=== PATIENT | female | born 1995 | race Caucasian/White ===

== ENCOUNTER 2017-06-20 15:02 | Outpatient (CLI) | payer BC, OTHER ==
[~2017-06-20] VITALS: Ht 160 cm; Wt 66.2 kg
[~2017-06-20 15:02] MED LIST: ACHYD1T PO; IBP800T PO; PREN1TAB71 PO
[2017-06-20] MEDS ORDERED: INFLUENZA TRIvalent 2017-2018 0.5 ML/45 MCG SYR IM ONE (16:00)
[2017-06-20] MEDS ORDERED: D5 LR IV SOLUTION 1,000 ML IV ONE (16:12)
[2017-06-20] MEDS: D5 LR IV SOLUTION 1,000 ML IV SCH (16:20)
[2017-06-20 17:08] LABS: BASOPHILS % (AUTO) 0 % (0-10); EOSINOPHILS % (AUTO) 0 % (0-10); LYMPHOCYTES # (AUTO) 1.8 X 10^3 (1.0-4.0); LYMPHOCYTES % (AUTO) 18 % (12-44); MEAN CORPUSCULAR HEMOGLOBIN 29 PG (25-34); MEAN CORPUSCULAR HGB CONC 33 G/DL (32-36); MEAN CORPUSCULAR VOLUME 87 FL (80-99); MEAN PLATELET VOLUME 10.5 FL (7.4-10.4); MONOCYTES # (AUTO) 0.7 X 10^3 (0.0-1.0); MONOCYTES % (AUTO) 7 % (0-12); NEUTROPHILS # (AUTO) 7.6 X 10^3 (1.8-7.8); NEUTROPHILS % (AUTO) 75 % (42-75); PLATELET COUNT 272 10^3/uL (130-400); RED BLOOD COUNT 3.86 10^6/uL (4.35-5.85); RED CELL DISTRIBUTION WIDTH 12.4 % (10.0-14.5); WHITE BLOOD COUNT 10.2 10^3/uL (4.3-11.0)
[2017-06-20 17:15] LABS: BILIRUBIN,URINE NEGATIVE (NEGATIVE); KETONES,URINE NEGATIVE (NEGATIVE); LEUKOCYTE ESTERASE ,URINE NEGATIVE (NEGATIVE); NITRITE,URINE NEGATIVE (NEGATIVE); PH,URINE 6.5 (5-9); PROTEIN,URINE 1+ (NEGATIVE); UROBILINOGEN,URINE 1 MG/DL (NORMAL)
[2017-06-20 17:24] LABS: WBC,URINE RARE /HPF
[2017-06-20] MEDS ORDERED: BETAMETHASONE ACE/NA PHOS 6 MG/ML (CELESTONE SOLUSPAN) IM SCH (17:56)
[2017-06-20] MEDS ORDERED: BETAMETHASONE ACE/NA PHOS 6 MG/ML (CELESTONE SOLUSPAN) ONE (17:56)
[2017-06-20] MEDS ORDERED: D5 LR IV SOLUTION 1,000 ML IV SCH (19:00)
[2017-06-20 20:10] VITALS: BP 125/63
[2017-06-20 23:10] VITALS: BP 105/53
[2017-06-21] MEDS: D5 LR IV SOLUTION 1,000 ML IV SCH (00:20)
[2017-06-21 07:09] VITALS: BP 113/57
--- NOTE | 2017-06-21 07:27 | History & Physical ---
History and Physical Date Seen by Provider: Jun 20, 2017 Time Seen by Provider: 18:30 this patient is a 21-year-old white female with a due date of July 28, 2017. She presented with complaint of regular contractions at 34+ weeks gestation. she denied rupture membranes or bleeding. She's had no other problems with this . She has had 1 prior that resulted in a 39 week vaginal delivery. He was found to be paxton every 2 minutes. He was given a single dose of betamethasone but plans to repeat in 24 hours and started on IV fluids for hydration. As she was past 34 weeks decision made against tocolytics. Allergies are none Medications vitamins Past medical history, surgical history, obstetric history, family history, and social history operative record ENT exam is normal Neck supple no lymphadenopathy in the thyromegaly Abdomen gravid soft nontender nondistended extremities show no cyanosis or Homans sign. Pelvic exam per the admitting nurse showed a cervix that was maybe fingertip and long. There was no shredding machine knife changer the period of evaluation. Laboratory Tests Test 06/20/17 16:25 06/20/17 16:30 Range/Units White Blood Count 10.2 4.3-11.0 10^3/uL Red Blood Count 3.86 L 4.35-5.85 10^6/uL Hemoglobin 11.0 L 11.5-16.0 G/DL Hematocrit 34 L 35-52 % Mean Corpuscular Volume 87 80-99 FL Mean Corpuscular Hemoglobin 29 25-34 PG Mean Corpuscular Hemoglobin Concent 33 32-36 G/DL Red Cell Distribution Width 12.4 10.0-14.5 % Platelet Count 272 130-400 10^3/uL Mean Platelet Volume 10.5 H 7.4-10.4 FL Neutrophils (%) (Auto) 75 42-75 % Lymphocytes (%) (Auto) 18 12-44 % Monocytes (%) (Auto) 7 0-12 % Eosinophils (%) (Auto) 0 0-10 % Basophils (%) (Auto) 0 0-10 % Neutrophils # (Auto) 7.6 1.8-7.8 X 10^3 Lymphocytes # (Auto) 1.8 1.0-4.0 X 10^3 Monocytes # (Auto) 0.7 0.0-1.0 X 10^3 Eosinophils # (Auto) 0.0 0.0-0.3 10^3/uL Basophils # (Auto) 0.0 0.0-0.1 10^3/uL Urine Color YELLOW Urine Clarity SLIGHTLY CLOUDY Urine pH 6.5 5-9 Urine Specific [place] 1.020 1.016-1.022 Urine Protein 1+ H NEGATIVE Urine Glucose (UA) NEGATIVE NEGATIVE Urine Ketones NEGATIVE NEGATIVE Urine Nitrite NEGATIVE NEGATIVE Urine Bilirubin NEGATIVE NEGATIVE Urine Urobilinogen 1 NORMAL MG/DL Urine Leukocyte Esterase NEGATIVE NEGATIVE Urine RBC (Auto) 3+ H NEGATIVE Urine RBC 5-10 H /HPF Urine WBC RARE /HPF Urine Crystals NONE /LPF Urine Amorphous Sediment MOD ANAT PHOSPHATE H /LPF Urine Bacteria FEW H /HPF Urine Casts PRESENT /LPF Urine Coarse Granular Casts 10-25 H /LPF Urine Mucus NEGATIVE /LPF Urine Culture Indicated NO Patient is somewhat dehydrated and shows some protein urine likely secondary to the dehydration. Vital Signs Date Time Temp Pulse Resp B/P (MAP) Pulse Ox O2 Delivery O2 Flow Rate FiO2 06/21/17 07:09 98.3 83 16 113/57 (75) 06/20/17 23:10 97.3 95 16 105/53 (70) 06/20/17 20:10 97.3 82 16 125/63 (83) assessment and plan labor at 34+ weeks gestation. Plan is for hydration and observation. If she should progress in labor then plan will be to allow delivery patient has been given a dose of betamethasone in case she should actually labor. If her contractions resolved then we will discharge home with follow-up in clinic Allergies and Home Medications Allergies Coded Allergies: codeine (Unverified Allergy, Unknown, 06/17/13) Home Medications Vit/Fe Fumarate/Fa 1 Each Tablet, 1 EACH PO DAILY, (Reported) YING HOLLAND MD Jun 21, 2017 7:27 am
--- NOTE | 2017-06-21 07:29 | Progress Note-Standard ---
Standard Progress Note Progress Notes/Assess & Plan Date Seen by Provider: Jun 21, 2017 Time Seen by Provider: 07:27 Progress/Assessment & Plan patient is without complaints. Her contractions have resolved. She denies rupture membranes. She's had some spotting likely attributable to her cervical exams. She does feel baby moving. She denies contraction. Laboratory Tests Test 06/20/17 16:25 06/20/17 16:30 Range/Units White Blood Count 10.2 4.3-11.0 10^3/uL Red Blood Count 3.86 L 4.35-5.85 10^6/uL Hemoglobin 11.0 L 11.5-16.0 G/DL Hematocrit 34 L 35-52 % Mean Corpuscular Volume 87 80-99 FL Mean Corpuscular Hemoglobin 29 25-34 PG Mean Corpuscular Hemoglobin Concent 33 32-36 G/DL Red Cell Distribution Width 12.4 10.0-14.5 % Platelet Count 272 130-400 10^3/uL Mean Platelet Volume 10.5 H 7.4-10.4 FL Neutrophils (%) (Auto) 75 42-75 % Lymphocytes (%) (Auto) 18 12-44 % Monocytes (%) (Auto) 7 0-12 % Eosinophils (%) (Auto) 0 0-10 % Basophils (%) (Auto) 0 0-10 % Neutrophils # (Auto) 7.6 1.8-7.8 X 10^3 Lymphocytes # (Auto) 1.8 1.0-4.0 X 10^3 Monocytes # (Auto) 0.7 0.0-1.0 X 10^3 Eosinophils # (Auto) 0.0 0.0-0.3 10^3/uL Basophils # (Auto) 0.0 0.0-0.1 10^3/uL Urine Color YELLOW Urine Clarity SLIGHTLY CLOUDY Urine pH 6.5 5-9 Urine Specific [place] 1.020 1.016-1.022 Urine Protein 1+ H NEGATIVE Urine Glucose (UA) NEGATIVE NEGATIVE Urine Ketones NEGATIVE NEGATIVE Urine Nitrite NEGATIVE NEGATIVE Urine Bilirubin NEGATIVE NEGATIVE Urine Urobilinogen 1 NORMAL MG/DL Urine Leukocyte Esterase NEGATIVE NEGATIVE Urine RBC (Auto) 3+ H NEGATIVE Urine RBC 5-10 H /HPF Urine WBC RARE /HPF Urine Crystals NONE /LPF Urine Amorphous Sediment MOD ANAT PHOSPHATE H /LPF Urine Bacteria FEW H /HPF Urine Casts PRESENT /LPF Urine Coarse Granular Casts 10-25 H /LPF Urine Mucus NEGATIVE /LPF Urine Culture Indicated NO monitoring shows no contractions were initially contractions were every 2- 4-6 minutes. The abdomen is gravid soft nontender nondistended Semicircular clubbing cyanosis. Pelvic exam per the nurse showed no cervical microsoft exchange architect the period of observation. Assessment and plan hospital day number 2 for labor. The contractions have resolved patient will be discharged home with follow-up in clinic. Final Diagnosis labor at 34+ weeks gestation YING HOLLAND MD Jun 21, 2017 7:29 am
== END 2017-06-21 07:30 | disposition home or self-care (01) ==
LOC: WSo 15:02 → LDRP 15:02 → WSo 06-21 07:30
PROVIDERS: ATTEND Obstetrics & Gynecology
DX: O60.03 Preterm labor without delivery, third trimester (principal); Z3A.34 34 weeks gestation of pregnancy
CPT/HCPCS: 36415; 81000; 85025; 96372

== ENCOUNTER 2017-07-10 14:11 | Inpatient (IN) | payer OTHER ==
[~2017-07-10] VITALS: Ht 160 cm; Wt 73.5 kg
[2017-07-10 14:00] VITALS: BP 110/67
[2017-07-10 15:08] LABS: BILIRUBIN,URINE NEGATIVE (NEGATIVE); CLARITY,URINE CLEAR; COLOR,URINE YELLOW; GLUCOSE, URINE (UA) NEGATIVE (NEGATIVE); KETONES,URINE NEGATIVE (NEGATIVE); LEUKOCYTE ESTERASE ,URINE 1+ (NEGATIVE); NITRITE,URINE NEGATIVE (NEGATIVE); PH,URINE 6.5 (5-9); PROTEIN,URINE 2+ (NEGATIVE); UROBILINOGEN,URINE NORMAL (NORMAL)
[2017-07-10] MEDS: D5 LR IV SOLUTION 1,000 ML IV SCH ×3 (15:10→23:00)
[2017-07-10 15:18] LABS: RBC,URINE >100 /HPF
[2017-07-10 15:23] LABS: BASOPHILS % (AUTO) 0 % (0-10); EOSINOPHILS # (AUTO) 0.1 10^3/uL (0.0-0.3); EOSINOPHILS % (AUTO) 1 % (0-10); HEMATOCRIT 34 % (35-52); HEMOGLOBIN 11.2 G/DL (11.5-16.0); LYMPHOCYTES # (AUTO) 1.7 X 10^3 (1.0-4.0); LYMPHOCYTES % (AUTO) 18 % (12-44); MEAN CORPUSCULAR HEMOGLOBIN 28 PG (25-34); MEAN CORPUSCULAR HGB CONC 33 G/DL (32-36); MEAN CORPUSCULAR VOLUME 85 FL (80-99); MEAN PLATELET VOLUME 10.2 FL (7.4-10.4); MONOCYTES # (AUTO) 0.6 X 10^3 (0.0-1.0); MONOCYTES % (AUTO) 7 % (0-12); NEUTROPHILS % (AUTO) 74 % (42-75); PLATELET COUNT 241 10^3/uL (130-400); RED BLOOD COUNT 4.01 10^6/uL (4.35-5.85); WHITE BLOOD COUNT 9.4 10^3/uL (4.3-11.0)
[2017-07-10] MEDS ORDERED: INFLUENZA TRIvalent 2017-2018 0.5 ML/45 MCG SYR IM ONE (16:15)
--- NOTE | 2017-07-10 17:20 | History & Physical ---
History and Physical Date Seen by Provider: Jul 10, 2017 Time Seen by Provider: 17:16 this patient is a 22-year-old white female with a due date of July 28, 2017 putting her just past 37 weeks gestation. She presented with complaint of vaginal discharge and contractions. She was found be paxton every 2-3 minutes with contractions have sort of wax and wane during the period of evaluation. In spite of hydration contractions have continued. It does not appear that she is leaking amniotic fluid as evaluation of that has been negative and she does indicate that contractions sometimes are quite intense but currently they wax and wane spacing out to 6 or 8 minutes apart and then increased to 2-3 minutes apart each lasting 60 seconds are longer. a GBS culture done after 35 weeks gestation is negative. allergies are none Medications are vitamins Medical surgical social histories are per the antepartum record HEENT exam is normal Neck is supple no lymphadenopathy no thyromegaly Abdomen is gravid soft nontender nondistended Extreme show clubbing cyanosis. There is no Homans sign. Pelvic exam per the labor and delivery nurse is 2-1/2 cm dilated thick vertex presentation with no change on serial exams monitor currently showed contractions about every 3-4 minutes. They're lasting 60 seconds patient indicates that they are moderate in intensity. She indicates that pressure in the pelvis waxes and wanes with contractions. Lab work is as follows Laboratory Tests Test 07/10/17 14:55 07/10/17 15:15 Range/Units Urine Color YELLOW Urine Clarity CLEAR Urine pH 6.5 5-9 Urine Specific [place] 1.020 1.016-1.022 Urine Protein 2+ H NEGATIVE Urine Glucose (UA) NEGATIVE NEGATIVE Urine Ketones NEGATIVE NEGATIVE Urine Nitrite NEGATIVE NEGATIVE Urine Bilirubin NEGATIVE NEGATIVE Urine Urobilinogen NORMAL NORMAL MG/DL Urine Leukocyte Esterase 1+ H NEGATIVE Urine RBC (Auto) 5+ H NEGATIVE Urine RBC >100 H /HPF Urine WBC 2-5 /HPF Urine Crystals NONE /LPF Urine Bacteria NONE /HPF Urine Casts NONE /LPF Urine Mucus NEGATIVE /LPF Urine Culture Indicated NO White Blood Count 9.4 4.3-11.0 10^3/uL Red Blood Count 4.01 L 4.35-5.85 10^6/uL Hemoglobin 11.2 L 11.5-16.0 G/DL Hematocrit 34 L 35-52 % Mean Corpuscular Volume 85 80-99 FL Mean Corpuscular Hemoglobin 28 25-34 PG Mean Corpuscular Hemoglobin Concent 33 32-36 G/DL Red Cell Distribution Width 13.0 10.0-14.5 % Platelet Count 241 130-400 10^3/uL Mean Platelet Volume 10.2 7.4-10.4 FL Neutrophils (%) (Auto) 74 42-75 % Lymphocytes (%) (Auto) 18 12-44 % Monocytes (%) (Auto) 7 0-12 % Eosinophils (%) (Auto) 1 0-10 % Basophils (%) (Auto) 0 0-10 % Neutrophils # (Auto) 7.0 1.8-7.8 X 10^3 Lymphocytes # (Auto) 1.7 1.0-4.0 X 10^3 Monocytes # (Auto) 0.6 0.0-1.0 X 10^3 Eosinophils # (Auto) 0.1 0.0-0.3 10^3/uL Basophils # (Auto) 0.0 0.0-0.1 10^3/uL other than some mild dehydration the patient's lab is normal assessment and plan 37 week plus gestation with labor. We will continue to monitor and continue with IV fluids for addressing her dehydration. She has not made cervical change we will allow diet with the expectation that her contractions will lead to progress and she will demonstrate labor and deliver or she will have resolution of her contractions at which point we can discharge her home with follow-up in clinic threatened labor Allergies and Home Medications Allergies Coded Allergies: codeine (Unverified Allergy, Unknown, 06/17/13) Home Medications Vit/Fe Fumarate/Fa 1 Each Tablet, 1 EACH PO DAILY, (Reported) YING HOLLAND MD Jul 10, 2017 5:20 pm
[2017-07-10 18:00] VITALS: BP 121/61
[2017-07-10 20:00] VITALS: BP 114/57
[2017-07-11] VITALS (38 sets, daily range): BP systolic 93–138; BP diastolic 51–78
[2017-07-11] MEDS ORDERED: OXYTOCIN/NORMAL SALINE 500 ML IV ONE (05:31)
[2017-07-11] MEDS ORDERED: D5 LR IV SOLUTION 1,000 ML IV SCH (05:58)
[2017-07-11] MEDS ORDERED: OXYTOCIN/NORMAL SALINE 500 ML IV SCH ×2 (05:58→08:32)
[2017-07-11] MEDS ORDERED: CATHETER FLUSH 10 ML SYR IV SCH (06:00)
[2017-07-11] MEDS ORDERED: SUFENTA 0.6MCG/ML BUPIVA 0.125 100 ML ONE ×2 (08:22→09:09)
--- NOTE | 2017-07-11 08:28 | Progress Note-Standard ---
Standard Progress Note Progress Notes/Assess & Plan Date Seen by Provider: Jul 11, 2017 Time Seen by Provider: 08:25 Progress/Assessment & Plan patient complains of persistent contractions through the night. By this morning her cervix dilated to 3 cm or little bit more. She continued to contract regularly. Intensity of the contractions waxed and waned through the night. Decision was made to proceed with Pitocin augmentation of what has developed into a prolonged latent labor. With stimulation of the Pitocin she progressed now to pass 4 cm. Amniotomy has now been performed releasing clear fluid. Anticipation is for vaginal delivery. Vital Signs Date Time Temp Pulse Resp B/P (MAP) Pulse Ox O2 Delivery O2 Flow Rate FiO2 07/11/17 07:35 75 93/51 (65) Room Air 07/11/17 07:15 96.9 88 18 109/59 (76) Room Air 07/11/17 07:00 97 18 116/68 (84) 07/11/17 06:45 94 18 101/60 (74) 07/11/17 06:30 99 18 115/70 (85) 07/11/17 06:15 98.7 82 18 119/73 (88) 07/10/17 20:00 99.2 98 16 114/57 (76) 07/10/17 18:00 98.3 96 16 121/61 (81) 07/10/17 14:00 98.0 102 16 110/67 (81) I & O 07/11/17 07:00 Intake Total 1000 ml Balance 1000 ml Vital signs are stable. Patient is afebrile. Abdomen is gravid soft nontender nondistended. Extremities show no clubbing cyanosis. There is no Homans sign. Pelvic exam reveals a cervix for similar dilated 58 percent effaced -1 station vertex presentation with a soft mid to slightly anterior cervix. Amniotomy is performed releasing clear fluid. Assessment and plan hospital day 2 with a now prolonged latent labor. initiated Pitocin augmentation to promote progress to delivery. Amniotomy performed. Epidural be allowed desired. We anticipate a vaginal delivery. YING HOLLAND MD Jul 11, 2017 8:28 am
[2017-07-11] MEDS ORDERED: TETANUS,DIPTH,PERTUSS P/F (BOOSTRIX) 0.5 ML VIAL IM ONE (08:45)
[2017-07-11] MEDS ORDERED: ONDANSETRON 4 MG/2 ML (SDV) Z0FRAN IVP PRN (08:45)
[2017-07-11] MEDS ORDERED: MEASLES,MUMPS,RUBELLA 1 EA INJ SC ONE (08:45)
[2017-07-11] MEDS ORDERED: oxyCODONE/APAP 10/325MG (PERCOCET 10) TABLET PO PRN (08:45)
[2017-07-11] MEDS ORDERED: BENZOCAINE/MENTHOL (DERMOPLAST) 56 ML CAN TP PRN (08:45)
[2017-07-11] MEDS ORDERED: fentaNYL INJECTION 100 MCG/2 ML AMP ONE (09:09)
[2017-07-11] MEDS ORDERED: BUPIVACAINE 0.25% 30 ML (SENSORCAINE) VIAL ONE (09:09)
[2017-07-11] MEDS ORDERED: LACTATED RINGERS 1,000 ML IV SCH (10:06)
[2017-07-11] MEDS ORDERED: ONDANSETRON 4 MG/2 ML (SDV) Z0FRAN IV PRN (10:15)
[2017-07-11] MEDS ORDERED: METOCLOPRAMIDE INJ 10 MG/2 ML (REGLAN) IV PRN (10:15)
[2017-07-11] MEDS ORDERED: EPIDURAL (SUFENTA 0.6MCG/ML BUPIVA 0.125%) 100 ML BAG EPI PRN (10:15)
[2017-07-11] MEDS ORDERED: diphenhydrAMINE 50 MG/ML INJ (BENADRYL) IV PRN (10:15)
[2017-07-11] MEDS ORDERED: NALOXONE 0.4 MG/ML 1 ML (NARCAN) VIAL IV PRN ×2 (10:15)
[2017-07-11] MEDS ORDERED: LIDOCAINE/EPI 2% 1:200,00 (XYLOCAINE) 10 ML VIAL ONE ×2 (10:53→11:32)
[2017-07-11] MEDS ORDERED: LIDOCAINE/EPI 2% 1:100,00 (XYLOCAINE) 20 ML VIAL INJ ONE ×2 (11:30)
[2017-07-11] MEDS: KETOROLAC 30 MG/ML VIAL IV SCH ×2 (14:44→20:37)
[2017-07-11] MEDS ORDERED: WITCH HAZEL(TUCKS) 40 EA JAR ONE (14:59)
--- NOTE | 2017-07-11 22:22 | OPERATIVE REPORT ---
DATE OF SERVICE: 07/11/2017 DELIVERY NOTE The patient delivered by term spontaneous vaginal delivery a viable male with Apgars that are pending and weight of 7 pounds 11 ounces. Cord blood pH is pending. time was 06/06/2017. The was bulb suctioned on delivery of the head and again on completion of the delivery. The was delivered from straight OA and required just a mild Riaz to release the shoulders. There was never really significant dystocia. Mom was pushing under the remnants of an epidural and the Riaz just eased the shoulders passage. The patient sustained a second-degree perineal laceration. The umbilical cord was doubly clamped when it was relatively pulseless and the father cut the cord, the baby was passed transiently to mom's abdomen and baby was taken to the warmer for resuscitation. The cord bloods were obtained then the placenta delivered quite promptly spontaneously [place]. It was normal with a 3-vessel cord. The cervix, vagina, rectum and perineum were examined and found intact, except for the first degree laceration that extended a centimeter or 2 up the left vaginal sulcus and involved a compound laceration on the peritoneum. This was all repaired with a single suture of 3-0 Vicryl Rapide in the usual manner to the reapproximation. The patient did have fairly substantial swelling that began immediately after the delivery and continued to progress as the repair was performed. Good reapproximation was achieved and good hemostasis was achieved. The patient tolerated the repair well and was performed under the epidural and augmented with 2% lidocaine with epinephrine using a total of 28 mL. Sponge and needle counts were correct on completion of the repair. Estimated blood loss was around 250 mL. The patient tolerated the delivery and the repair well and remained in the LDR for recovery. The baby had been taken stable to the full term nursery for evaluation and resuscitation. Job ID: [id number] DocumentID: [id number] Dictated Date: 07/11/2017 11:58:00 Director Speech And Hearing Date: 07/11/2017 22:07:05 Dictated By: YING HOLLAND MD
[2017-07-12 02:20] VITALS: BP 99/56
[2017-07-12] MEDS: KETOROLAC 30 MG/ML VIAL IV SCH ×2 (02:20→11:04)
[2017-07-12] MEDS: DOCUSATE SODIUM 100 MG (COLACE) CAP PO SCH ×3 (02:20→21:19)
[2017-07-12] MEDS: IBUPROFEN 800 MG (MOTRIN) TAB PO SCH ×3 (08:48→21:19)
--- NOTE | 2017-07-12 09:42 | Progress Note-Standard ---
Standard Progress Note Progress Notes/Assess & Plan Date Seen by Provider: Jul 12, 2017 Time Seen by Provider: 09:40 Progress/Assessment & Plan patient complains of persistent contractions through the night. By this morning her cervix dilated to 3 cm or little bit more. She continued to contract regularly. Intensity of the contractions waxed and waned through the night. Decision was made to proceed with Pitocin augmentation of what has developed into a prolonged latent labor. With stimulation of the Pitocin she progressed now to pass 4 cm. Amniotomy has now been performed releasing clear fluid. Anticipation is for vaginal delivery. Vital Signs Date Time Temp Pulse Resp B/P (MAP) Pulse Ox O2 Delivery O2 Flow Rate FiO2 07/11/17 07:35 75 93/51 (65) Room Air 07/11/17 07:15 96.9 88 18 109/59 (76) Room Air 07/11/17 07:00 97 18 116/68 (84) 07/11/17 06:45 94 18 101/60 (74) 07/11/17 06:30 99 18 115/70 (85) 07/11/17 06:15 98.7 82 18 119/73 (88) 07/10/17 20:00 99.2 98 16 114/57 (76) 07/10/17 18:00 98.3 96 16 121/61 (81) 07/10/17 14:00 98.0 102 16 110/67 (81) I & O 07/11/17 07:00 Intake Total 1000 ml Balance 1000 ml Vital signs are stable. Patient is afebrile. Abdomen is gravid soft nontender nondistended. Extremities show no clubbing cyanosis. There is no Homans sign. Pelvic exam reveals a cervix for similar dilated 58 percent effaced -1 station vertex presentation with a soft mid to slightly anterior cervix. Amniotomy is performed releasing clear fluid. Assessment and plan hospital day 2 with a now prolonged latent labor. initiated Pitocin augmentation to promote progress to delivery. Amniotomy performed. Epidural be allowed desired. We anticipate a vaginal delivery. July 12, 2017 Patient is without complaint. She is ambulating, voiding, tolerating by mouth well, has good pain control. Patient denies chest pain, denies shortness of breath, denies nausea vomiting, and denies headache. Vital Signs Date Time Temp Pulse Resp B/P (MAP) Pulse Ox O2 Delivery O2 Flow Rate FiO2 07/12/17 02:20 98.3 85 16 99/56 (70) 97 Room Air 07/11/17 20:30 98.7 95 16 115/70 (85) 97 Room Air 07/11/17 17:00 97.8 95 16 115/70 (85) 98 Room Air 07/11/17 13:09 82 107/54 (71) Room Air 07/11/17 12:54 93 113/55 (74) Room Air 07/11/17 12:40 88 112/57 (75) Room Air 07/11/17 12:25 89 110/57 (74) Room Air 07/11/17 12:09 90 122/61 (81) Room Air 07/11/17 11:54 99 117/61 (79) Room Air 07/11/17 11:39 98.5 89 118/58 (78) Room Air 07/11/17 11:34 94 127/59 (81) Room Air 07/11/17 11:25 89 138/62 (87) Room Air 07/11/17 11:15 76 117/56 (76) Room Air 07/11/17 11:00 106 118/61 (80) Room Air 07/11/17 10:45 90 125/64 (84) 99 Room Air 07/11/17 10:30 80 109/56 (73) 98 Room Air 07/11/17 10:15 77 98/52 (67) 98 Room Air 07/11/17 10:00 82 18 122/59 (80) 100 Room Air 07/11/17 09:55 80 121/58 (79) 99 Room Air 07/11/17 09:50 81 119/58 (78) 99 Room Air 07/11/17 09:45 86 18 126/59 (81) 97 Room Air 07/11/17 09:43 76 126/59 (81) 97 Room Air I & O 07/12/17 07:00 Intake Total 2080 ml Output Total 300 ml Balance 1780 ml vital signs are stable. Patient afebrile. Fundus is firm below the umbilicus and nontender. Extremities show no clubbing cyanosis. There is no Homans sign. There is some pretibial pitting edema that is normal. Assessment and plan day number 1 status post term spontaneous vaginal delivery doing well. Plan is for routine convalescence care today and likely discharge home tomorrow YING HOLLAND MD Jul 12, 2017 9:42 am
[2017-07-12] MEDS ORDERED: DOCU100C37 PO (09:43)
[2017-07-12] MEDS ORDERED: IBUP-1780 PO (09:43)
[2017-07-12] MEDS ORDERED: OXYC-465 PO (09:43)
--- NOTE | 2017-07-12 09:44 | Discharge Instructions ---
Discharge Instructions Discharge Medications New, Converted or Re-Newed RX: RX on Chart Patient Instructions Patient Instructions: as directed Return to The Hospital For: as directed Activity & Diet Discharge Diet: No Restrictions Activity as Tolerated: No Orders-Post D/C & Referrals Follow Up Appt: Call to make follow up appt. for patient in 4 weeks. Activity Per routine post vaginal delivery instructions. Diet as tolerated Patient may shower or tub bathe as desired. YING HOLLAND MD Jul 12, 2017 9:44 am
[2017-07-12] MEDS ORDERED: TETANUS,DIPTH,PERTUSS P/F (BOOSTRIX) 0.5 ML VIAL IM ONE (10:35)
[2017-07-12 10:39] VITALS: BP 107/71
[2017-07-12 14:13] VITALS: BP 92/57
--- NOTE | 2017-07-12 15:01 | Anesthesia-Regional Post-Op ---
Regional Patient Condition Mental Status: Alert, Oriented x3 Circulation: Same as Pre-Op Headache: Absent Sensation: Full Recovery Motor Block: Absent Post Op Complications Complications None Follow Up Care/Instructions Patient Instructions None needed. Anesthesia/Patient Condition Patient is doing well, no complaints, stable vital signs, no apparent adverse anesthesia problems. No complications reported per nursing. ASYA VALADEZ CRNA Jul 12, 2017 15:01
[2017-07-12 21:00] VITALS: BP 112/63
[2017-07-13 03:32] VITALS: BP 106/56
[2017-07-13] MEDS: IBUPROFEN 800 MG (MOTRIN) TAB PO SCH ×3 (03:32→16:11)
[2017-07-13 08:00] VITALS: BP 103/63
[2017-07-13] MEDS: DOCUSATE SODIUM 100 MG (COLACE) CAP PO SCH (08:55)
--- NOTE | 2017-07-13 09:36 | Progress Note-Standard ---
Standard Progress Note Progress Notes/Assess & Plan Date Seen by Provider: Jul 13, 2017 Time Seen by Provider: 09:34 Progress/Assessment & Plan patient complains of persistent contractions through the night. By this morning her cervix dilated to 3 cm or little bit more. She continued to contract regularly. Intensity of the contractions waxed and waned through the night. Decision was made to proceed with Pitocin augmentation of what has developed into a prolonged latent labor. With stimulation of the Pitocin she progressed now to pass 4 cm. Amniotomy has now been performed releasing clear fluid. Anticipation is for vaginal delivery. Vital Signs Date Time Temp Pulse Resp B/P (MAP) Pulse Ox O2 Delivery O2 Flow Rate FiO2 07/11/17 07:35 75 93/51 (65) Room Air 07/11/17 07:15 96.9 88 18 109/59 (76) Room Air 07/11/17 07:00 97 18 116/68 (84) 07/11/17 06:45 94 18 101/60 (74) 07/11/17 06:30 99 18 115/70 (85) 07/11/17 06:15 98.7 82 18 119/73 (88) 07/10/17 20:00 99.2 98 16 114/57 (76) 07/10/17 18:00 98.3 96 16 121/61 (81) 07/10/17 14:00 98.0 102 16 110/67 (81) I & O 07/11/17 07:00 Intake Total 1000 ml Balance 1000 ml Vital signs are stable. Patient is afebrile. Abdomen is gravid soft nontender nondistended. Extremities show no clubbing cyanosis. There is no Homans sign. Pelvic exam reveals a cervix for similar dilated 58 percent effaced -1 station vertex presentation with a soft mid to slightly anterior cervix. Amniotomy is performed releasing clear fluid. Assessment and plan hospital day 2 with a now prolonged latent labor. initiated Pitocin augmentation to promote progress to delivery. Amniotomy performed. Epidural be allowed desired. We anticipate a vaginal delivery. July 12, 2017 Patient is without complaint. She is ambulating, voiding, tolerating by mouth well, has good pain control. Patient denies chest pain, denies shortness of breath, denies nausea vomiting, and denies headache. Vital Signs Date Time Temp Pulse Resp B/P (MAP) Pulse Ox O2 Delivery O2 Flow Rate FiO2 07/12/17 02:20 98.3 85 16 99/56 (70) 97 Room Air 07/11/17 20:30 98.7 95 16 115/70 (85) 97 Room Air 07/11/17 17:00 97.8 95 16 115/70 (85) 98 Room Air 07/11/17 13:09 82 107/54 (71) Room Air 07/11/17 12:54 93 113/55 (74) Room Air 07/11/17 12:40 88 112/57 (75) Room Air 07/11/17 12:25 89 110/57 (74) Room Air 07/11/17 12:09 90 122/61 (81) Room Air 07/11/17 11:54 99 117/61 (79) Room Air 07/11/17 11:39 98.5 89 118/58 (78) Room Air 07/11/17 11:34 94 127/59 (81) Room Air 07/11/17 11:25 89 138/62 (87) Room Air 07/11/17 11:15 76 117/56 (76) Room Air 07/11/17 11:00 106 118/61 (80) Room Air 07/11/17 10:45 90 125/64 (84) 99 Room Air 07/11/17 10:30 80 109/56 (73) 98 Room Air 07/11/17 10:15 77 98/52 (67) 98 Room Air 07/11/17 10:00 82 18 122/59 (80) 100 Room Air 07/11/17 09:55 80 121/58 (79) 99 Room Air 07/11/17 09:50 81 119/58 (78) 99 Room Air 07/11/17 09:45 86 18 126/59 (81) 97 Room Air 07/11/17 09:43 76 126/59 (81) 97 Room Air I & O 07/12/17 07:00 Intake Total 2080 ml Output Total 300 ml Balance 1780 ml vital signs are stable. Patient afebrile. Fundus is firm below the umbilicus and nontender. Extremities show no clubbing cyanosis. There is no Homans sign. There is some pretibial pitting edema that is normal. Assessment and plan day number 1 status post term spontaneous vaginal delivery doing well. Plan is for routine convalescence care today and likely discharge home tomorrow July 13, 2017 Patient without complaint. She is ablating, voiding, tolerating preoperative has good pain control. She is requesting discharge home, she denies chest pain , denies shortness of breath, denies nausea vomiting, and denies headache. Vital Signs Date Time Temp Pulse Resp B/P (MAP) Pulse Ox O2 Delivery O2 Flow Rate FiO2 07/13/17 08:00 98 Room Air 07/13/17 08:00 98.0 80 18 103/63 (76) 98 07/13/17 03:32 98.0 77 18 106/56 (73) 98 Room Air 07/12/17 21:00 96.7 78 18 112/63 (79) 98 Room Air 07/12/17 14:13 97.8 105 18 92/57 (69) 97 Room Air 07/12/17 10:39 97.8 118 18 107/71 (83) 98 Room Air vital signs are stable. Patient is afebrile. Fundus is firm below the umbilicus and nontender. Extremities show no clubbing or cyanosis. There is no Homans sign. assessment and plan day number 2 status post term spontaneous vaginal delivery doing well. Plan is for discharge home with follow-up in clinic Final Diagnosis term spontaneous vaginal delivery YING HOLLAND MD Jul 13, 2017 9:36 am
[2017-07-13] MEDS ORDERED: OXYC-465 PO (09:39)
== END 2017-07-13 16:55 | disposition home or self-care (01) | DRG 775 ==
LOC: WSo 14:11 → LDRP 14:12 → WSo 07-11 05:58 → LDRP 07-11 05:59
PROVIDERS: ADMIT Obstetrics & Gynecology; ATTEND Obstetrics & Gynecology
PROC: 0KQM0ZZ Repair Perineum Muscle, Open Approach (ICD-10-PCS; principal; 2017-07-11)
PROC: 10E0XZZ Delivery of Products of Conception, External Approach (ICD-10-PCS; 2017-07-11)
DX: O99.284 Endocrine, nutritional and metabolic diseases complicating childbirth (principal); E86.0 Dehydration; O63.0 Prolonged first stage (of labor); Z3A.37 37 weeks gestation of pregnancy; Z37.0 Single live birth; Z23 Encounter for immunization
CPT/HCPCS: 36415; 81000; 85025; 86850; 86900; 86901; 90715; 99212

== ENCOUNTER → 2021-08-20 | Outpatient (CLI) | payer OTHER ==
[~2021-08-20] MED LIST changes: +DOCU100C37 PO; +IBUP-1780 PO; +OXYC-556 PO
--- NOTE | 2021-08-20 14:57 | Diagnostic Imaging Report ---
INDICATION: Low back pain. TIME OF EXAM: 1:44 PM. TECHNIQUE: Frontal and lateral views of the lumbar spine were obtained. FINDINGS: The curvature and alignment are normal. The vertebral body heights and disc spaces are well-maintained. No fracture or subluxation is identified. IMPRESSION: No acute bony abnormality is detected. Dictated by: Dictated on workstation # [id number]
== END ==
LOC: RAD FS 13:30
PROVIDERS: ATTEND Nurse Practitioner Family
DX: M54.41 Lumbago with sciatica, right side (principal)
CPT/HCPCS: 72100

== ENCOUNTER → 2022-01-10 | Outpatient (CLI) | payer OTHER ==
--- NOTE | 2022-01-10 09:12 | Diagnostic Imaging Report ---
PROCEDURE: CT sinuses without contrast TECHNIQUE: Multiple contiguous axial images were obtained through the sinuses without the use of intravenous contrast. Coronal and sagittal reformations were then performed. Auto Exposure Controls were utilized during the CT exam to meet ALARA standards for radiation dose reduction. INDICATION: 26-year-old female with chronic sinusitis. COMPARISONS: None FINDINGS: Axial images and sagittal and coronal reconstructions of the paranasal sinuses show some very minimal mucosal thickening along the inferior margin of the maxillary sinuses. Otherwise, the maxillary sinuses appear reasonably well pneumatized. The ostiomeatal complexes are patent. There is slight nasoseptal deviation to the right. Ethmoid air cells and sphenoid sinuses are well pneumatized. Frontal sinuses are small but appear well pneumatized. Orbits including both globes, retro-orbital extraconal, conal and intraconal spaces are normal. Zygomatic arches and pterygoid plates are symmetric. Mastoid air cells appear well pneumatized. IMPRESSION: 1. Minimal mucosal thickening in the maxillary sinuses, right more so than left. Remainder of the paranasal sinuses and mastoid air cells are well pneumatized. The osteomeatal complexes are patent. 2. There is nasal septal deviation to the right. Dictated by: Dictated on workstation # [id number]
== END ==
LOC: RAD 08:06
PROVIDERS: ATTEND Otolaryngology Otolaryngology/Facial Plastic Surgery
DX: J32.9 Chronic sinusitis, unspecified (principal); J34.2 Deviated nasal septum
CPT/HCPCS: 70486